=== PATIENT | male | born 1970 | race Caucasian/White ===

== ENCOUNTER 2018-09-27 07:02 | Day surgery (SDC) | payer BC, SELFPAY ==
[2018-09-27 07:23] VITALS: BP 132/97; PULSE 86; RESP 18; TEMP 36.1; O2SAT 94
[2018-09-27] MEDS: Lactated Ringers 1,000 ML 80 ML IV (07:44)
--- NOTE | 2018-09-27 08:30 | HPE_ITS ---
Assessment and Plan (1) Phimosis: Current visit: Yes Status: Chronic We had discussed circumcision versus dorsal slit. He presents for circumcision. 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 He recalls having a biopsy in the past. As his symptoms have progressed and he has had more and more difficulty retracting the foreskin, he is agreeable to circumcision. Review of Systems Constitutional Denies chills and Denies fever(s) Eyes Denies change in vision and Denies loss of vision ENT Denies dizziness and Denies sore throat Cardiovascular Denies chest pain and Denies irregular heart rhythm Respiratory Denies cough Gastrointestinal Denies abdominal pain and Denies change in stool character Musculoskeletal Reports arthralgias Neurologic Denies dizziness, Denies loss of vision and Denies seizure-like activity COUNTS INCLUDE 234 BEDS AT THE [facility] Medical History Arvilla teeth extracted (Acute) Hypothyroid (Chronic) Pulmonary embolism (Chronic) Seasonal affective disorder (Chronic) Arvilla teeth extracted (Chronic) Social History Smoking/Tobacco Use Status: Never Drug use: Never Substance use type: does not use Details: alcohol 09/25 couple beers playing golf Do you feel safe at home: Yes Meds Home Medications Medication Instructions Recorded Confirmed Type bupropion HCl XL 150 mg 24 hr 150 mg PO QAM 08/06/18 09/27/18 History tablet, extended release levothyroxine 175 mcg capsule 175 mcg PO DAILY 08/06/18 09/27/18 History rivaroxaban 10 mg tablet 20 mg PO DAILY tab 08/06/18 09/27/18 History Exam Const General: cooperative, comfortable and no acute distress Neck Neck: supple Chest Chest: normal inspection of the chest Resp Effort & Inspection: normal respiratory effort and able to speak in complete sentences Auscultation: clear to auscultation bilaterally and diminished lung sounds Cardio Rate: regular rate Rhythm: regular rhythm GI Inspection: normal to inspection Palpation: soft Neuro General: alert, awake and oriented x3 Results Last Vital Signs Temp 36.1 C L 09/27/18 07:23 Pulse 86 06/20/19 07:23 Resp 18 09/27/18 07:23 BP 132/97 H 09/27/18 07:23 Pulse Ox 94 L 09/27/18 07:23
[2018-09-27] MEDS: ceFAZolin 2 GM/50 ML BAG IVPB (08:46)
[2018-09-27] MEDS: Bupivacaine 0.5% Pres-Free 30 ML VIAL (09:00)
--- NOTE | 2018-09-27 09:26 | W.PM.DSUDISC ---
Discharge Plan Disposition Patient Disposition: HOME Condition: Stable Discharge Details Attending Provider: Marshall Covarrubias Primary Care Provider: Raymond Lee Home Meds and New Rx's Prescriptions: New tramadol 50 mg tablet 50 mg PO Q6H PRN (Reason: pain) Qty: 20 RF: 0 No Action Xarelto 10 mg tablet 20 mg PO DAILY RF: 0 levothyroxine 175 mcg capsule 175 mcg PO DAILY RF: 0 bupropion HCl [Wellbutrin XL] 150 mg tablet extended release 24 hr 150 mg PO QAM RF: 0 Discharge Instructions Additional Instructions: May shower/bathe in 24 hours and remove dressing F/U appt @ 2 weeks May restart blood thinner in 48 hours (as long as no bleeding seen from incision) Activity:: Activity as Tolerated Remove Dressings/Wound Care:: 24 hours Shower/Bathe:: 24 hours Diet:: As Tolerated Discharge Orders Discharge Orders: Discharge Order (Routine); Ordered 09/27/18 Ordered By: Marshall Covarrubias DS: Diagnosis Discharge Diagnosis (1) Phimosis: Status: Chronic (2) Balanitis xerotica obliterans: Status: Chronic
[2018-09-27 10:07] VITALS: BP 126/76; PULSE 77; RESP 16; TEMP 35.7; O2SAT 96
--- NOTE | 2018-09-28 08:16 | ROE_ITS ---
REPORT OF OPERATIVE PROCEDURE DATE OF SURGERY September 27, 2018 PREOPERATIVE DIAGNOSIS Phimosis due to balanitis xerotica obliterans. POSTOPERATIVE DIAGNOSIS Phimosis due to balanitis xerotica obliterans. PROCEDURE Circumcision. ANESTHESIA General with local. COMPLICATIONS None. HISTORY This is a 48-year-old gentleman who has a history of being unable to retract the foreskin. He has had some whitish tissue along the glans and the foreskin. At one point, the area was biopsied and he was diagnosed with balanitis xerotica obliterans. As it has become more and more difficult to retract the skin, he is interested in surgical treatment. He presents for circumcision. OPERATIVE REPORT The patient was brought to the Operating Room on 09/27/2018. After successful induction of General ane sthesia, he was placed in the supine position. His genitalia was prepped and draped. We began by making a circumferential incision on the outer aspect of the foreskin. This was done just above the level of the laureano. We then retracted the foreskin back over the glans and made a second circumferential incision about 2 to 3 centimeters below the level of the coronal sulcus. We connected the two incisions and removed the redundant foreskin. Any bleeding points that were enco untered were then cauterized using the Bovie. Once hemostasis had been achieved, the skin edges were reapproximated with simple interrupted #4-0 Ch romic sutures. A penile ring block was performed with 0.25% Marcaine. A dorsal penile nerve block was performed as well. Once hemostasis had been achieved, a Vaseline gauze was applied to the wound. The patient tolerated the procedure well with no complications. He was taken to the Recovery Room in [facility] condition. CC: Raymond Lee D.O.
== END 2018-09-27 10:35 | disposition home or self-care (01) ==
PROVIDERS: PCP Neuromusculoskeletal Medicine & OMM; Visit Provider Urology
PROC: (CPT 54161; principal; 2018-09-27 09:00)
DX: N47.1 Phimosis (principal); N48.0 Leukoplakia of penis
CPT/HCPCS: 54161; NC; J0690; J1100; J1200; J1885; J2250; J2405; J3010